=== PATIENT | male | born 1950 | race Caucasian/White ===

== ENCOUNTER 2018-02-18 10:45 | Emergency (ER) | payer MEDICARE, BC ==
[~2018-02-18] VITALS: Ht 172.7 cm; Wt 95.0 kg
[2018-02-18 11:17] LABS: HEMATOCRIT 42.2 % (39.0-50.0); HEMOGLOBIN 15.1 g/dl (14.0-18.0); IMMATURE GRANULOCYTES 0.3 % (0.0-5.0); MEAN CORPUSCULAR HGB 31.1 pG CALC (26.0-32.0); MEAN CORPUSCULAR HGB CONC 35.8 g/L CALC (32.0-36.0); NEUT# 6.86 thou/uL (1.82-7.42); RED BLOOD COUNT 4.85 mill/uL (4.70-6.10); RED CELL DISTRI WIDTH 11.9 % (11.5-15.5)
[2018-02-18 11:33] LABS: ALBUMIN 4.5 g/dL (3.2-5.0); BILIRUBIN, TOTAL 1.7 mg/dL (0.0-1.4); CREATININE 1.6 mg/dL (0.7-1.3); TOTAL PROTEIN 7.3 g/dL (6.3-8.2)
[2018-02-18 13:00] LABS: URINE BILIRUBIN - DIPSTICK NEGATIVE (NEGATIVE); URINE BLOOD DIPSTICK NEGATIVE (NEGATIVE); URINE COLOR YELLOW; URINE GLUCOSE - DIPSTICK NEGATIVE (NEGATIVE); URINE KETONE NEGATIVE (NEGATIVE); URINE LEUK ESTERASE NEGATIVE (NEGATIVE); URINE NITRITE - DIPSTICK NEGATIVE (Negative); URINE PROTEIN - DIPSTICK NEGATIVE (NEG-TRACE); URINE SPECIFIC GRAVITY 1.015; URINE UROBILINOGEN - DIPSTICK 0.2 E.U./dL (0.2)
[2018-02-18] MEDS ORDERED: CIPROFLOXACN500 MG PO (13:22)
[2018-02-18] MEDS ORDERED: METRONIDAZOL500 MG PO (13:22)
[2018-02-18] MEDS ORDERED: ZOFRAN ODT8 MG PO (13:22)
[2018-02-18 13:33] VITALS: BP 102/62
== END 2018-02-18 13:44 | disposition home or self-care (01) ==
LOC: ED 10:45
PROVIDERS: Family Medicine
DX: K52.9 Noninfective gastroenteritis and colitis, unspecified (principal); I10 Essential (primary) hypertension; E11.9 Type 2 diabetes mellitus without complications

== ENCOUNTER 2018-07-02 10:55 | Emergency (ER) | payer MEDICARE ==
[~2018-07-02] VITALS: Ht 172.7 cm; Wt 100.0 kg
[~2018-07-02 10:55] MED LIST: CIPROFLOXACN500 MG PO; METRONIDAZOL500 MG PO; ZOFRAN ODT8 MG PO
[2018-07-02] MEDS ORDERED: VOLTAREN1%GEL TOP (14:11)
[2018-07-02] MEDS ORDERED: CONZIP100 MG PO (14:11)
[2018-07-02] MEDS ORDERED: LO-DOSE ASA81 MG PO (14:25)
[2018-07-02] MEDS ORDERED: TRULICITY1.5 MG/0.5 SC (14:27)
[2018-07-02] MEDS ORDERED: LOSARTAN/HCT1 TA1 PO (14:29)
[2018-07-02] MEDS ORDERED: ALLOPURINOL100 MG PO (14:29)
[2018-07-02] MEDS ORDERED: INDOCIN25 MG PO (14:30)
[2018-07-02] MEDS ORDERED: BEVESPI AEROSPH1 AER IN (14:32)
[2018-07-02] MEDS ORDERED: ESCITALOPRAM OX10 MG PO (14:32)
[2018-07-02] MEDS ORDERED: TYLENOL 8 HOUR650 MG PO (14:34)
[2018-07-02] MEDS ORDERED: FISH OIL1000 MG PO (14:34)
[2018-07-02] MEDS ORDERED: B121000 MCG PO (14:35)
[2018-07-02] MEDS ORDERED: CRESTOR5 MG PO (14:35)
[2018-07-02 14:52] VITALS: BP 135/81
== END 2018-07-02 14:52 | disposition home or self-care (01) ==
LOC: ED 10:55
DX: S86.911A Strain of unspecified muscle(s) and tendon(s) at lower leg level, right leg, initial encounter (principal); M25.561 Pain in right knee; X50.1XXA Overexertion from prolonged static or awkward postures, initial encounter; Y93.89 Activity, other specified; Y92.009 Unspecified place in unspecified non-institutional (private) residence as the place of occurrence of the external cause